=== PATIENT | male | born 1965 | race Caucasian/White ===

== ENCOUNTER → 2021-02-17 | Outpatient (CLI) | payer BC ==
[~2021-02-17] MED LIST: AMOCLA875 PO; ATOR20 PO; Aspirin EC81 MG PO; CYCL10 PO; LOSA25 PO; Norco 5-325 Ta1 EACH PO; Prinivil10 MG PO; TRAM50 PO; Valium5 MG PO; Voltaren100 GM TOP
== END | disposition home or self-care (01) ==
LOC: LAB SHORT 16:04
DX: N39.0 Urinary tract infection, site not specified (principal)
CPT/HCPCS: 87077; 87086; 87186

== ENCOUNTER 2022-02-26 13:27 | Emergency (ER) | payer OTHER, BC ==
[2022-02-26] MEDS ORDERED: OMEP20ER PO (13:41)
[2022-02-26] MEDS ORDERED: ONDA4ODT MM (18:45)
[2022-02-26] MEDS ORDERED: HYDR1TAB94 PO (18:45)
== END 2022-02-26 18:50 | disposition home or self-care (01) ==
DX: R55 Syncope and collapse (principal); E83.51 Hypocalcemia; I10 Essential (primary) hypertension; F17.220 Nicotine dependence, chewing tobacco, uncomplicated; Z79.82 Long term (current) use of aspirin

== ENCOUNTER → 2023-10-23 | Outpatient (CLI) | payer BC ==
[~2023-10-23] MED LIST changes: +HYDR1TAB94 PO; +OMEP20ER PO; +ONDA4ODT MM
== END ==
LOC: LAB SHORT 08:43 → LAB 08:43
DX: R30.0 Dysuria (principal)
CPT/HCPCS: 87086